=== PATIENT | male | born 1975 | race Caucasian/White ===

== ENCOUNTER 2016-10-31 17:11 | Emergency (ER) | payer BC ==
[2016-10-31 17:23] VITALS: TEMP 99.6
[2016-10-31 18:50] LABS: ALT 42 U/L (21-72); AST 29 U/L (17-59); Alkaline Phosphatase 66 U/L (38-126); Anion Gap 12 mmol/L; Blood Urea Nitrogen 14 mg/dL (9-20); Calcium 9.5 mg/dL (8.4-10.2); Carbon Dioxide 26 mmol/L (22-30); Chloride 98 mmol/L (98-107); Glucose 95 mg/dL (74-99); Magnesium 2.2 mg/dL (1.6-2.3); Non-African American GFR(MDRD) >60 (>60 ml/min/1.73 sqM); Potassium 4.7 mmol/L (3.5-5.1); Sodium 136 mmol/L (137-145); Total Bilirubin 0.4 mg/dL (0.2-1.3); Total Protein 7.7 g/dL (6.3-8.2)
[2016-10-31 18:51] LABS: Partial Thromboplastin Time 26.3 sec (22.0-30.0); Prothrombin Time 10.1 sec (9.0-12.0)
--- NOTE | 2016-10-31 18:52 | ED ---
Chest Pain HPI - General Chief Complaint: Chest Pain Stated Complaint: CHEST PAIN, [place] LAST NIGHT Time Seen by Provider: 10/31/16 18:10 Source: patient, RN notes reviewed Mode of arrival: wheelchair Limitations: no limitations - History of Present Illness Initial Comments: 41-year-old male presents emergency Department chief complaint of chest pain. Patient states chest pain started last night. Patient states that she had a before using eat dinner. Patient states he had increased belching states he had lower substernal chest pain. Patient states he was nonradiating. Patient states she just did not feel well. Patient states that he ended up going home states he was tossing turning goes he was achy and felt that he had hot and cold flashes. Patient states she even had some give him some nitro states that the pain was already resolving at that time so is not sure if this helped. Patient states he did take some back and Devyn Aspirin today. Patient states all his symptoms have resolved though he was very uncomfortable up until 2:00 this afternoon. Patient states he has not met this time. He denies history of hyperlipidemia, hypertension, diabetes. Patient states he is to back. A smoker for 20 years. Patient states he has not noticed any history as he is adopted. Patient has no complaints of acid reflux. - Related Data Home Medications Medication Instructions Recorded Confirmed Dextroamphetamine/Amphetamine 20 mg PO TID 10/31/16 10/31/16 [Adderall] Nitroglycerin Sl Tabs [Nitrostat] 0.4 mg SUBLINGUAL ONCE PRN 10/31/16 10/31/16 Previous Rx's Medication Instructions Recorded Oseltamivir [Tamiflu] 75 mg PO Q12HR #10 cap 10/31/16 Allergies Allergy/AdvReac Type Severity Reaction Status Date / Time No Known Allergies Allergy Verified 10/31/16 18:39 Review of Systems ROS Statement: Those systems with pertinent positive or pertinent negative responses have been documented in the HPI. ROS Other: All systems not noted in ROS Statement are negative. EKG Findings - EKG Comments: EKG Findings:: EKG 17:34-year-old normal sinus rhythm with a rate of 92, SC interval 172, QRS duration 102, QT/QTC 326/403 Past Medical History Past Medical History: No Reported History History of Any Multi-Drug Resistant Organisms: None Reported Past Surgical History: No Surgical Hx Reported Past Psychological History: ADD/ADHD Smoking Status: Current every day smoker Past Alcohol Use History: Occasional Past Drug Use History: None Reported General Exam Limitations: no limitations General appearance: alert, in no apparent distress Head exam: Present: atraumatic, normocephalic, normal inspection Neck exam: Present: normal inspection. Absent: tenderness, meningismus, lymphadenopathy Respiratory exam: Present: normal lung sounds bilaterally. Absent: respiratory distress, wheezes, rales, rhonchi, stridor Cardiovascular Exam: Present: regular rate, normal rhythm, normal heart sounds. Absent: systolic murmur, diastolic murmur, rubs, gallop, clicks GI/Abdominal exam: Present: soft, normal bowel sounds. Absent: distended, tenderness (No epigastric tenderness), guarding, rebound, rigid Back exam: Absent: CVA tenderness (R), CVA tenderness (L) Neurological exam: Present: alert, oriented X3, CN II-XII intact Course Vital Signs 10/31/16 17:19 Temperature 99.6 F Pulse Rate 102 H Respiratory 18 Rate Blood Pressure 110/72 O2 Sat by Pulse 97 Oximetry Chest Pain MDM - MDM 41-year-old male present emergency department for fever, chest discomfort. Patient has influenza. Patient was started on Tamiflu. Return parameters were discussed. Disposition Clinical Impression: Influenza Disposition: HOME SELF-CARE Condition: Stable Instructions: Influenza (ED) Additional Instructions: Please return to the Emergency Department if symptoms worsen or any other concerns. Prescriptions: Oseltamivir [Tamiflu] 75 mg PO Q12HR #10 cap Time of Disposition: 20:02
[2016-10-31 19:00] LABS: CH 30.6; CHCM 34.7; HCT 49.8 % (39.0-53.0); HDW 2.33; HGB 16.4 gm/dL (13.0-17.5); MCHC 32.8 g/dL (31.0-37.0); MCV 88.3 fL (80.0-100.0); Mean Platelet Volume 6.9; RBC 5.64 m/uL (4.30-5.90); RDW 12.3 % (11.5-15.5); WBC 5.6 k/uL (3.8-10.6); WBC (Perox) 5.72
[2016-10-31 19:04] LABS: Creatine Kinase 76 U/L (55-170)
[2016-10-31 19:16] LABS: Creatine Kinase MB <0.2 ng/mL (0.0-2.4); Troponin I <0.012 ng/mL (0.000-0.034)
--- NOTE | 2016-10-31 19:20 | XR ---
EXAMINATION TYPE: XR chest 2V DATE OF EXAM: 10/31/2016 7:08 PM COMPARISON: NONE HISTORY: Chest pain TECHNIQUE: Frontal and lateral views of the chest are obtained. FINDINGS: Heart and mediastinum are normal. Lungs are clear. Diaphragm is normal. There are chest le ads. Bony thorax appears normal. IMPRESSION: Normal chest.
[2016-10-31 19:54] LABS: Add Differential Manual Differential
[2016-10-31 19:59] LABS: Large Platelets Present; Manual Review Performed; Nucleated Red Blood Cells 0 /100 WBC (0-0); Total Cells Counted 100
[2016-10-31 20:00] LABS: Toxic Granulation Present
[2016-10-31 20:07] VITALS: BP 115/83; PULSE 87; RESP 16
== END 2016-10-31 20:09 | disposition home or self-care (01) ==
LOC: EC 17:11
DX: J11.1 Influenza due to unidentified influenza virus with other respiratory manifestations (principal); R07.89 Other chest pain; R14.2 Eructation; F90.9 Attention-deficit hyperactivity disorder, unspecified type; F17.200 Nicotine dependence, unspecified, uncomplicated; Z79.899 Other long term (current) drug therapy
CPT/HCPCS: 36415; 71020; 80053; 82550; 82553; 83690; 83735; 84484; 85025; 85610; 85730; 87502; 93005; 99285